=== PATIENT | male | born 1985 | race African-American/Black ===

== ENCOUNTER 2020-12-24 14:08 | Emergency (ER) | payer OTHER ==
[~2020-12-24] VITALS: Ht 165.1 cm; Wt 73.6 kg
[2020-12-24] MEDS ORDERED: ZYRTEC ALLERGY10 MG PO (14:29)
[2020-12-24 16:20] VITALS: BP 135/82
== END 2020-12-24 16:21 | disposition home or self-care (01) ==
LOC: ED 14:08
DX: S51.812A Laceration without foreign body of left forearm, initial encounter (principal); W22.8XXA Striking against or struck by other objects, initial encounter; Y92.59 Other trade areas as the place of occurrence of the external cause; Y99.0 Civilian activity done for income or pay
CPT/HCPCS: 90715